=== PATIENT | female | born 1945 | race Caucasian/White ===

== ENCOUNTER → 2016-11-18 | Outpatient (CLI) | payer OTHER | LOC: FIMAGING 14:27 | PROVIDERS: ATTEND Family Medicine | DX: Z13.820 Encounter for screening for osteoporosis (principal); M85.80 Other specified disorders of bone density and structure, unspecified site ==

== ENCOUNTER 2017-01-31 18:08 | Emergency (ER) | payer OTHER ==
--- NOTE | 2017-01-31 18:19 | EDPHY ---
HPI/HX/ROS/PE/MDM Narrative: CHIEF COMPLAINT: Hamstring injury HISTORY OF PRESENT ILLNESS: This patient is a 71 year old female arriving via EMS from home complaining of an exacerbation of pain in her left leg secondary to an injury last week while gardening. One week ago, she states she was shoveling and felt a "pop" in her left leg, and subsequent pain in her hamstring, from buttock to knee. She reports she was able to walk on it, and treated the pain with ice and heat. She states she visited her primary care provider, who recommended physical therapy. Today, she states she tripped over a garden hose and reinjured the area. Per EMS report, she developed worsening pain and had an episode of incontinence because she was unable to walk to the bathroom. She states she has taken Ibuprofen for pain control prior to arrival. No fever, chills, chest pain, shortness of breath, palpitations, vomiting, diarrhea, urinary complaints, headache, lightheadedness. REVIEW OF SYSTEMS: Aside from elements discussed in the HPI, a comprehensive 10-point review of systems was reviewed and is negative. PAST MEDICAL HISTORY: Hypertension. Diabetes Type II. SOCIAL HISTORY: Lives in [place]. PCP Dr. Syed. VITAL SIGNS: Reviewed by me GENERAL: Well-developed, well-nourished, uncomfortable when asked to move her left leg. HEENT: Atraumatic. Benign exam. No tenderness of the cervical spine. LUNGS: Clear to auscultation bilaterally, no wheezes, rhonchi or rales. CARDIAC: Regular rate and rhythm, no rubs, murmurs or gallops. ABDOMEN: Soft, nontender, nondistended, bowel sounds normal. BACK: No CVA tenderness. EXTREMITIES: No abrasions or surface trauma noted on the buttocks or lower back. Tenderness palpation over the left inferior rami. ROM decreased due to pain. Normal sensation in the left lower extremity, normal pulses. Straight leg raise test is normal on the left. Patient has pain when asked to engage her hamstrings. No edema. Extremity exam otherwise unremarkable. NEURO: Alert and oriented, grossly nonfocal. SKIN: Warm and dry, no rash. PSYCHIATRIC: Normal mentation, no agitation. Portions of this note were transcribed by a medical affairs manager. I personally performed a history, physical exam, medical decision making, and confirmed accuracy of information the transcribed note. ED Course: This patient is a 71 year old female presenting with an acute exacerbation of an injury to her left hamstring one week ago. Physical exam reveals tenderness in the left buttock, presumably over the inferior rami. Range of motion is decreased due to pain. Plan for x-ray to rule out fracture or other acute processes. X-ray shows a questionable avulsion fracture.. Plan to administer Flexeril and Hydrocodone for symptom relief. 19:21 Reassessed patient. The patient experiences a muscle spasm when hamstring is engaged. 19:[address] Escoto, radiologist, regarding x-ray of pelvis. Films were reviewed. I offered CT to further assess possible fracture, but the patient declined further imaging at this time. Plan to discharge home in good condition with crutches and instructions for follow up with orthopedics. She will be given prescriptions for Oxycodone and Flexeril. The patient is comfortable with this plan. MDM: Differential diagnosis for the patient's injury was considered including but not limited to contusion, hamstring tear, hamstring sprain, avulsion fracture, open fracture, or dislocation. - Data Points Imaging Results: Impression: Questionable tiny avulsion fracture from the left inferior ischial ramus. Recommendation: Consider CT imaging. Findings and recommendations discussed with Emergency Department physician, Jaimie Wang M.D., at 1933 hours, on January 31, 2017. Final report concurs with initial preliminary interpretation. Dr. Escoto Imaging: Discussed imaging studies w/ call box wirer Radiologist, I viewed and interpreted images myself Medications Given: Discontinued Medications Cyclobenzaprine HCl (Flexeril) 10 mg PO EDNOW ONE Stop: 01/31/17 19:28 Last Admin: 01/31/17 19:30 Dose: 10 mg Ketorolac Tromethamine (Toradol) 30 mg IM EDNOW ONE Stop: 01/31/17 18:37 Last Admin: 01/31/17 18:45 Dose: 30 mg Oxycodone/Acetaminophen (Percocet 5/325) 1 tab PO EDNOW ONE Stop: 01/31/17 19:28 Last Admin: 01/31/17 19:30 Dose: 1 tab General Time Seen by Provider: 01/31/17 18:12 Initial Vital Signs: Initial Vital Signs Temperature (C) 36.9 C 01/31/17 18:20 Heart Rate 85 01/31/17 18:20 Respiratory Rate 16 01/31/17 18:20 Blood Pressure 156/71 H 01/31/17 18:20 O2 Sat (%) 96 01/31/17 18:20 O2 Delivery Mode Room Air Allergies/Adverse Reactions: lisinopril Allergy (Verified 01/31/17 18:22) Home Medications: Medication Instructions Recorded Blood Pressure Med 01/31/17 Cyclobenzaprine [Flexeril 10 MG 10 mg PO TID PRN #20 tab 01/31/17 (RX)] oxyCODONE/APAP 5/325 [Percocet 1 tab PO QID PRN #12 tab 01/31/17 5/325 (*)] Departure - Departure Disposition: Home, Routine, Self-Care Clinical Impression: Left hamstring muscle strain, possible inferior rami fracture Condition: Good Instructions: Crutch Instructions (ED), Pelvic Avulsion Fractures in Adults (ED ) Additional Instructions: Take your Oxycodone and Flexeril as prescribed for pain and muscle spasms. Use crutches as needed for pain control. Touch-down weight bearing is okay. Mainstay of therapy is rest, ice, immobilization, elevation, and nonsteroidal anti-inflammatories for pain and to decrease swelling. Apply ice for 20-30 minutes every 2-3 hours for the next 48 hours. I recommend Ibuprofen (Motrin, Advil) or Naproxen Sodium (Aleve) for pain and anti-inflammatory effects. You may take either one, but do not take both. Your dose is: Ibuprofen 600 mg every 6-8 hours with food. OR Naproxen Sodium (Aleve) 220 mg every 12 hours. Okay to use Oxycodone as needed for severe pain. Follow up with an client resolution specialist next week for continued evaluation. Referrals: Patient,NotPresent [Unknown] - As per Instructions Jer Morales MD [Medical Doctor] - As per Instructions Prescriptions: Cyclobenzaprine [Flexeril 10 MG (RX)] 10 mg PO TID PRN #20 tab PRN Reason: Muscle Spasms oxyCODONE/APAP 5/325 [Percocet 5/325 (*)] 1 tab PO QID PRN #12 tab PRN Reason: Pain Report Scribed for: Jaimie Wang Report Scribed by: Rachel Dickey Date of Report: 01/31/17 Time of Report: 18:18
[2017-01-31] MEDS ORDERED: KETOROLAC 30 MG/1 ML SDV IM ONE (18:36)
[2017-01-31] MEDS ORDERED: CYCLOBENZAPRINE 10 MG TAB ONE (19:25)
[2017-01-31] MEDS ORDERED: OXYCODONE/APAP 5/325 TAB ONE (19:26)
[2017-01-31] MEDS ORDERED: OXYCODONE/APAP 5/325 TAB PO ONE (19:27)
[2017-01-31] MEDS ORDERED: CYCLOBENZAPRINE 10 MG TAB PO ONE (19:27)
[2017-01-31 20:37] VITALS: BP 146/74; PULSE 81; RESP 20; TEMP 98.1; O2SAT 92
== END 2017-01-31 21:03 | disposition home or self-care (01) ==
LOC: EDUNIT#
DX: S76.312A Strain of muscle, fascia and tendon of the posterior muscle group at thigh level, left thigh, initial encounter (principal); E11.9 Type 2 diabetes mellitus without complications; I10 Essential (primary) hypertension; W01.198A Fall on same level from slipping, tripping and stumbling with subsequent striking against other object, initial encounter; Y99.8 Other external cause status; Y93.H1 Activity, digging, shoveling and raking
CPT/HCPCS: 73502; J1885

== ENCOUNTER → 2017-06-03 | Outpatient (CLI) | payer OTHER | LOC: FIMAGING 12:26 | PROVIDERS: ATTEND Family Medicine | DX: Z12.31 Encounter for screening mammogram for malignant neoplasm of breast (principal) | CPT/HCPCS: G0202 ==

== ENCOUNTER → 2018-06-24 | Outpatient (CLI) | payer OTHER ==
[~2018-06-24] MED LIST: IOPAMIDOL (ISOVUE 370) 100 ML BTL IV ONE; LIDOCAINE 1% 300 MG/30 ML SDV ONE
== END ==
LOC: FIMAGING 10:06
PROVIDERS: ATTEND Orthopaedic Surgery
PROC: 3E0U3KZ Introduction of Other Diagnostic Substance into Joints, Percutaneous Approach (ICD-10-PCS; principal; 2018-06-24)
DX: M19.012 Primary osteoarthritis, left shoulder (principal)
CPT/HCPCS: 23350; 73040; 73200; 73201; Q9967

== ENCOUNTER 2018-07-27 07:35 | Inpatient (IN) | payer OTHER ==
--- NOTE | 2018-07-26 22:24 | PDGENHP ---
History & Physical Chief Complaint: left shoulder pain History of Present Illness: 73 yo female, presenting today for left total shoulder arthroplasty for left shoulder arthritis by dr. thompson. Pertinent Past, Social, Family History: FH: father/mother heart disease. SOC: former smoker, denies rec drugs, occasional ETOH. allergies: lisinopril. PMH: anemia, arthritis, depression, DM, HTN, HLD, osteopenia, sleep apnea Relevant Physical Exam: left shulder 120ff, 5/-5 empty can, skin looks healthy, nvgi Assessment & Plan Assessment: 73 yo female presenting today for left shoulder total shoulder arthroplasty due to left shoulder arthritis -proph: oscar christina b/l, scd's b/l, incentive spirometry, -cefazolin 2grams pre op IV once -mrsa negative -will admit over night for coverage -LUE: NWB post operatively with time study technologist sling use
[2018-07-27] MEDS ORDERED: ceFAZolin 2 GM/DEXTROSE 100 ML IV ONE (07:40)
[2018-07-27] MEDS ORDERED: LIDOCAINE 1% 2 ML INJ ID PRN (07:41)
[2018-07-27] MEDS ORDERED: LR 1,000 ML IV ONE (07:41)
[2018-07-27] MEDS ORDERED: ROPIVACAINE HCL 20 MG/10 ML INJ EP ONE (07:42)
[2018-07-27] MEDS ORDERED: EPINEPHrine 1 MG/ML INJ ONE ×3 (07:42→10:49)
--- NOTE | 2018-07-27 08:44 | PDANEPAE ---
ANE Past Medical History - Cardiovascular History Hx Hypertension: Yes Hx Arrhythmias: No Hx Chest Pain: No Hx Coronary Artery / Peripheral Vascular Disease: No Hx CHF / Valvular Disease: No Hx Palpitations: No - Pulmonary History Hx COPD: No Hx Asthma/Reactive Airway Disease: No Hx Recent Upper Respiratory Infection: No Hx Oxygen in Use at Home: No Hx Sleep Apnea: Yes Sleep Apnea Screening Result - Last Documented: Positive Pulmonary History Comment: JEAN-PIERRE USES C-PAP - Neurologic History Hx Cerebrovascular Accident: No Hx Seizures: No Hx Dementia: No - Endocrine History Hx Diabetes: Yes Obesity: moderate Endocrine History Comment: NIDDM - Renal History Hx Renal Disorders: No - Liver History Hx Hepatic Disorders: No - Neurological & Psychiatric Hx Hx Neurological and Psychiatric Disorders: Yes Neurological / Psychiatric History Comment: DEPRESSION/ANXIETY - Cancer History Hx Cancer: No - Congenital Disorder History Hx Congenital Disorders: No - GI History GERD: no Hx Gastrointestinal Disorders: No - Other Health History Other Health History: OSTEOPENIA. OSTEOARTHRITIS - Chronic Pain History Chronic Pain: Yes (LT SHLDR) - Surgical History Prior Surgeries: LT SHLDR DECOMPRESSION 06/2015. AT [facility]. HYSTERECTOMY. TONSILLECTOMY. RT BUNIONECTOMY. LT KNEE SCOPE ANE Review of Systems Review of Systems: - Exercise capacity METS (RN): 4 METS ANE Patient History - Allergies Allergies/Adverse Reactions: lisinopril Allergy (Verified 07/14/18 11:11) Cough - Home Medications Home medications: home medication list seen and reviewed Home Medications: Acetaminophen [Tylenol 325mg (*)] 325 mg PO Q6 PRN 07/14/18 [Last Taken 07/26/18 ] Aspirin [Aspirin 81mg (*)] 81 mg PO DAILY 07/14/18 [Last Taken 07/06/18] Atorvastatin Calcium [Lipitor 40 mg (*)] 80 mg PO DAILY 07/14/18 [Last Taken 06:00] FLUoxetine [Prozac 20 MG (*)] 40 mg PO DAILY 07/14/18 [Last Taken 07/26/18] Labetalol HCl [Trandate 200 mg (*)] 200 mg PO BID 07/14/18 [Last Taken 07/27/18 06:00] Losartan/Hydrochlorothiazide [Losartan-Hctz 100-25 mg Tab] 1 each PO DAILY 07/14 [Last Taken 07/26/18 08:00] Propylene Glycol/Peg 400/Pf [Systane 0.3-0.4% Eye Drops] 1 each OP DAILY PRN 11/26 [Last Taken 07/13/18] buPROPion XL [Wellbutrin Xl] 300 mg PO DAILY 07/14/18 [Last Taken 07/27/18 06:00 ] metFORMIN HCL [Glucophage 1000 mg] 1,000 mg PO BIDMEAL 07/14/18 [Last Taken 18:00] - NPO status NPO Status: no food or drink >8 hours NPO Since - Liquids (Date): 07/27/18 NPO Since - Liquids (Time): 06:00 NPO Since - Solids (Date): 07/26/18 NPO Since - Solids (Time): 18:00 - Anes Hx Anes Hx: no prior problems - Smoking Hx Smoking Status: Never smoked ANE Labs/Vital Signs - Vital Signs Blood Pressure: 163/74 Heart Rate: 67 Respiratory Rate: 21 O2 Sat (%): 94 Height: 160.02 cm Weight: 72.575 kg ANE Physical Exam - Airway Neck exam: FROM Mallampati Score: Class 2 Mouth exam: normal dental/mouth exam - Pulmonary Pulmonary: no respiratory distress, no rales or rhonchi, clear to auscultation - Cardiovascular Cardiovascular: regular rate and rhythym, no murmur, rub, or gallop - ASA Status ASA Status: II ANE Anesthesia Plan Anesthesia Plan: GA w LMA Regional Anesthesia: continuous NB, interscalene BP NB, POPC/PSR
--- NOTE | 2018-07-27 08:55 | PDHPUP ---
History & Physical Update H&P update statement: This history and physical update is based on an assessment of the patient which was completed after admission or registration (within 24 hours), but prior to the surgery/procedure. H&P update: H&P reviewed & patient examined, no change in patient's condition since H&P completed
[2018-07-27] MEDS ORDERED: BUPIVACAINE 0.5% 30 ML SDV ONE (08:56)
[2018-07-27] MEDS ORDERED: MIDAZOLAM 2 MG/2 ML VIAL ONE (08:57)
[2018-07-27] MEDS ORDERED: PROPOFOL 200 MG/20 ML VIAL ONE (08:57)
[2018-07-27] MEDS ORDERED: fentaNYL 100 MCG/2 ML INJ ONE (08:57)
[2018-07-27] MEDS ORDERED: ONDANSETRON 4 MG/2 ML VIAL ONE (09:00)
[2018-07-27] MEDS ORDERED: LIDOCAINE 2% 5 ML SDV ONE (09:00)
[2018-07-27] MEDS ORDERED: LIPID EMULSION 20% 100 ML IV PRN (09:10)
[2018-07-27] MEDS ORDERED: NALOXONE HCL 0.4 MG/ML INJ IVP PRN ×2 (09:12→11:23)
[2018-07-27] MEDS ORDERED: ROPIVACAINE 0.2% 1,100 MG in PUMP SET 1 EA NB SCH (09:15)
[2018-07-27] MEDS ORDERED: PHENYLEPHRINE HCL 100 MCG/ML SYR ONE (09:40)
[2018-07-27] MEDS ORDERED: ePHEDrine SULFATE 25 MG/5 ML SYR ONE (10:14)
[2018-07-27] MEDS ORDERED: ROCURONIUM 50 MG/5 ML VIAL ONE (10:18)
[2018-07-27] MEDS ORDERED: LABETALOL HCL 20 MG/4 ML INJ IVP PRN (11:23)
[2018-07-27] MEDS ORDERED: DIAZEPAM 5 MG/ML 1 ML SYR IVP PRN (11:23)
[2018-07-27] MEDS ORDERED: ACETAMINOPHEN 500 MG TAB PO PRN (11:23)
[2018-07-27] MEDS ORDERED: ENALAPRILAT DIHYDRATE 1.25 MG/ML VIAL IVP PRN (11:23)
[2018-07-27] MEDS ORDERED: PROMETHAZINE HCL 25 MG/ML INJ IVP PRN (11:23)
[2018-07-27] MEDS ORDERED: fentaNYL 100 MCG/2 ML INJ IVP PRN (11:23)
[2018-07-27] MEDS ORDERED: HYDROCODONE/APAP 5/325 TAB PO PRN (11:23)
[2018-07-27] MEDS ORDERED: oxyCODONE IR 5 MG TAB PO PRN (11:23)
[2018-07-27] MEDS ORDERED: ONDANSETRON 4 MG/2 ML VIAL IVP PRN (11:23)
[2018-07-27] MEDS ORDERED: LR 500 ML IV PRN (11:23)
[2018-07-27] MEDS ORDERED: KETOROLAC 30 MG/1 ML SDV ONE (11:49)
[2018-07-27] MEDS ORDERED: ACETAMINOPHEN 325 MG TAB PO PRN (12:16)
--- NOTE | 2018-07-27 12:27 | POSTANESTH ---
Post Anesthetic Evaluation Cardiovascular Status: Normal, Stable Respiratory Status: Normal, Stable, Similar to Pre-op Cond. Level of Consciousness/Mental Status: Can Participate in Eval, Alert and Oriented Pain Control: Adequate, Prn Tx Ordered Nausea/Vomiting Control: Adequate, Prn Tx Ordered Complications Possibly Related to Anesthesia: None Noted
[2018-07-27] MEDS ORDERED: D5W 1/2 NS W/ 20 KCl/L 1,000 ML IV SCH (12:30)
[2018-07-27] MEDS ORDERED: ceFAZolin 2 GM/DEXTROSE 100 ML IV SCH (14:00)
--- NOTE | 2018-07-27 14:15 | GOP ---
DATE OF OPERATION: 07/27/2018 SURGEON: Miguel Mathis MD HOUSEKEEPING AID: Temo Templeton PA-C. PA medically required for positioning of the arm during open tot al shoulder and careful retraction of vital neurovascular structures. PREOPERATIVE DIAGNOSIS: Left shoulder osteoarthritis. POSTOPERATIVE DIAGNOSIS: Left shoulder osteoarthritis. PROCEDURE PERFORMED: 1. Left total shoulder replacement. 2. Pectoral biceps tenodesis. 3. Loose body removal. FINDINGS: INDICATIONS: A 73-year-old female with left shoulder osteoarthritis. Clinical radiographic and CT a nd advanced imaging show intact cuff. Shoulder osteoarthritis. MRSA scan was negative. The patient elects for operative intervention after failed conservative management. DESCRIPTION OF PROCEDURE: The patient identified in the preoperative holding area. Consent laterali ty and preoperative antibiotics were confirmed and delivered. All questions were answered. The patient brought into the operating room. Interscalene catheter. Beach chair position. 30 degre e head of bed. All extremities well padded. The left upper extremity was prepped and draped in the usual sterile fashion. Ioban draping. Surgical time-out was performed. Standard deltopectoral interval. Cephalic vein was taken with the deltoid. Freed up the subdeltoid adhesions, which were quite remarkable. We were able to get good excursion of the humeral head. Too k down the clavipectoral fascia. [place] retractor underneath the conjoined tendon and the deltoid. We found the biceps tenodesis to the pec and recessed the pec. Did a pectenotomy of about 1.5 cm for exposure. We did a lesser tuberosity osteotomy with a large osteotome. Tagged the subscap. Freed up the capsule. Fukuda was placed. We did an inferior capsulotomy with protection of the axillary n erve with a Darrach retractor. Progressive external rotation. We did an osteophytectomy. We had a good deliverance of the head. We did a freehand cut osteotomy. Initially the bone felt pretty good except for a little bit of osteoporosis and softening from the 3 o'clock to 6 o'clock position. We p laced a humeral head protector in there and went to the glenoid. We placed the arm on a well-padded arm elizabeth. Slight external rotation of the arm. Completed the i nferior capsulectomy and posterior capsulotomy. We had an excellent en face exposure of the glenoid. Fukuda retractor posteriorly, [place] retractor anteriorly. We found the center-center position us ing Biomet guide. Drilled the center position hole. Drilled the remaining top and bottom two. We t rialed and then cemented the peripheral holes with a metal-backed central peg with trabecular metal. She had nice bone. We did ream prior to this to a flat surface. We then turned to the humeral head again. We took out the humeral head protector. We did prep for t alfonso Nunezus, but the bone was a little bit too soft and the center pin actually kept wandering inferiorl y. Thus, we chose to move to a stem. We chose a humeral canal finder. Hand reamed to a 10 with a n ice scratch fit and then broached to a 10 and then press-fit in the real stem. We trialed with the h ead. It was maximum offset up until about the 11 o'clock position, and we chose a 42 x 16. We put i n the real implants. Prior to putting the stem in, we placed drill holes in the biceps groove and th en placed 4 loops of suture for an Arthrex compression technique. We passed sutures through the medi al aspect of the lesser tuberosity osteotomy into the subscap tendon. And tied top, top, bottom melissa om, cross, cross, and then medial. We put 2 [id number] stitches in the rotator interval. We co piously washed out the wound with 500 cc of warm normal saline. The excursion posteriorly was 50%. We tied off the subscap in neutral adduction and external rotation. The wound was washed out with 2- 0 PDS, 3-0 Monocryl, 3-0 Prolene, Mastisol, Steri-Strips, and Mepilex dressing. The needle counts were over by one and we took an x-ray, which looked normal without any stray needle s present or abnormality on the x-ray. The patient was extubated and awake to the PACU in stable con dition. IMPLANTS USED: 1. A Biomet small glenoid. 2. 10 stem. 3. 42 x 16 head. Original intent was the Sidus stemless construct, but bone was too osteoporotic fro m the 3 to 6 o'clock position metaphyseal. /[id number]/MODL
[2018-07-27] MEDS: ceFAZolin 2 GM/DEXTROSE 100 ML IV SCH (17:15)
[2018-07-27] MEDS: KETOROLAC 15 MG/1 ML SDV IVP SCH (17:15)
[2018-07-27] MEDS ORDERED: ZOLPIDEM TARTRATE 5 MG TAB PO PRN (20:43)
[2018-07-27] MEDS: DOCUSATE SODIUM 100 MG CAP PO SCH (21:07)
[2018-07-27] MEDS: OXYCODONE/APAP 5/325 TAB PO PRN (21:07)
[2018-07-28] MEDS: ceFAZolin 2 GM/DEXTROSE 100 ML IV SCH (00:07)
[2018-07-28] MEDS: KETOROLAC 15 MG/1 ML SDV IVP SCH ×3 (00:07→11:14)
[2018-07-28] MEDS: OXYCODONE/APAP 5/325 TAB PO PRN ×2 (07:46→11:18)
[2018-07-28] MEDS: DOCUSATE SODIUM 100 MG CAP PO SCH (07:47)
[2018-07-28 07:59] VITALS: BP 145/69
--- NOTE | 2018-07-28 08:21 | PDDCSUM ---
Discharge Summary Discharge Summary: Admitted 07/27/18 Discharged 07/28/19 pre op diagnosis: left shoulder arthritis post op diagnosis: left shoulder arthritis procedure: left total shoulder arthroplasty by dr. thompson on 07/27/18 S: Shanti reports no issues over night, pain is controlled with pain meds, denies any fevers/chills, denies cp/sob, denies falls/injuries, reports she is wearing her sling as instructed, voiding without issues, hasn't had a bowel movement yet, but feels her bowels moving O: sling in place, dressings c/d/i, no visible drainage or signs of infection, appropriately ttp, no shoulder rom assessed, full wrist/digit rom w/o pain, grossly nvid w/ resistance against wrist extension A/P 73 yo female s/p left total shoulder arthroplasty by dr thompson on 07/28, pod # 1, doing well w/o issues -plan for discharge today if tolerating oral pain meds, cleared by pt/ot -LUE: NWB with near time study observer sling use, may do pendulums, but NON weight bearing -proph: oscar hoes b/l, calf pumps b/l, laps around house occasionally, and Incentive Spirometry -pain: scripts previously given to patients by dr thompson, tylenol 1000mg q8h, ibuprofen 600mg q6-8h, oxycodone 5mg 1 tabs po q4prn pain -f/u 7-10 days in clinic or sooner if having issues
[2018-07-28] MEDS ORDERED: ENOXAPARIN 30 MG/0.3 ML SYR SC SCH (09:00)
--- NOTE | 2018-07-28 09:39 | PDPAINCON ---
Pain Management Consultation Patient referred by : Del - Subjective Pain is: under control Side effects include: No drowsy, No itchiness, No nausea, No nausea/vomiting, No rash Activity: able to ambulate - Objective Technique: continuous peripheral nerve block Site: brachial plexus Continuous infusion: ropivicaine (0.2%) Catheter site: clean, dry, intact, no erythema/edema/exudate Sensory and motor exam: consistent with block Vital signs: stable - Assessment/Plan Assessment/Plan: pain well-controlled, continue current mgmt Additional comments: POD 1 s/p placement of left interscalene peripheral nerve catheter. Denies adverse effects. Reports good coverage of painful areas, with two small regions of spared analgesia. Overall doing well with ropi 0.2% at 6ml/ hr in addition to PO analgesics. Plan is to d/c home today. Will continue to follow-up by phone until reservoir is empty.
--- NOTE | 2018-07-28 10:57 | ASDISCHSUM ---
Discharge Information Plan Status:Home with No Needs Medically Cleared to Leave:07/27/2018 Discharge Date:07/27/2018 CM D/C Disposition:Home, Routine, Self-Care ADT D/C Disposition:Home, Routine, Self-Care Projected Discharge Date:07/28/2018 12:00 AM Transportation at D/C:Family Discharge Delay Reason: Follow-Up Date:07/28/2018 12:00 AM Discharge Slot:2 - 12:01 pm - 18:00 pm Final Diagnosis: Placement Information Patient Contact Information Contact Name:MICAHELA Relationship:Friend Address: Work Phone: City: [facility] Phone: [facility] [address] Code: Email: Financial Information Financial Class:Medicare Advantage Plans Primary Plan Desc:[facility] [employer] [facility] Primary Plan Number:[id number] Secondary Plan Desc: Secondary Plan Number: Assessment Information LACE LACE Length of stay for Answers: Less than 1 day current admission Acuity / Level of Answers: Yes Care: Did the patient have an inpatient admission? Comorbidities - select Answers: Diabetes (uncontrolled or all that apply controlled) Opioid dependence / Chronic pain Other Notes: HTN # of Emergency department Answers: 0 visits in the last 6 months Social determinants Answers: Mental health diagnosis (anxiety, depression, pers onality disorders, etc.) Score: 12 Date Signed: 07/28/2018 10:56 AM Electronically Signed By:RAMILA Díaz Case Management Discharge Plan Note Case Management Discharge Discharge Order Complete? Answers: Yes Patient to Obtain Answers: via Family Medications Transportation Arranged Answers: Family/Friends Discharge Comments Notes: CM discussed pt with RN. Pt is to be discharged independent. No CM needs identified. Date Signed: 07/28/2018 10:55 AM Electronically Signed By:RAMILA Díaz Intervention Information
== END 2018-07-28 12:15 | disposition home or self-care (01) | DRG 483 ==
LOC: F3N 07:35 → OBSVTOIN 15:23
PROVIDERS: ADMIT Orthopaedic Surgery; ATTEND Orthopaedic Surgery
PROC: 0LM20ZZ Reattachment of Left Shoulder Tendon, Open Approach (ICD-10-PCS; principal; 2018-07-27 09:15)
PROC: 0RCK0ZZ Extirpation of Matter from Left Shoulder Joint, Open Approach (ICD-10-PCS; principal; 2018-07-27 09:15)
PROC: 3E0T3BZ Introduction of Anesthetic Agent into Peripheral Nerves and Plexi, Percutaneous Approach (ICD-10-PCS; principal; 2018-07-27 09:15)
PROC: 0RRK0JZ Replacement of Left Shoulder Joint with Synthetic Substitute, Open Approach (ICD-10-PCS; principal; 2018-07-27 09:15)
DX: M19.012 Primary osteoarthritis, left shoulder (principal); E11.9 Type 2 diabetes mellitus without complications; I10 Essential (primary) hypertension; E78.5 Hyperlipidemia, unspecified; G47.33 Obstructive sleep apnea (adult) (pediatric); M85.88 Other specified disorders of bone density and structure, other site; F32.9 Major depressive disorder, single episode, unspecified; Z87.891 Personal history of nicotine dependence
CPT/HCPCS: 97116-GP; 97161-GP; 97165-GO; 97535-GO; C1713; G8978-GP-CI; G8979-GP-CI; G8980-GP-CI; G8987-GO-CI; G8988-GO-CI; G8989-GO-CI; J0171; J0690; J1650; J1885; J2250; J2370; J2405; J2704; J2795; J3010

== ENCOUNTER → 2018-12-03 | Outpatient (CLI) | payer OTHER | LOC: FIMAGING 15:59 | PROVIDERS: ATTEND Family Medicine | DX: Z12.31 Encounter for screening mammogram for malignant neoplasm of breast (principal); Z80.3 Family history of malignant neoplasm of breast ==